=== PATIENT | female | born 1955 | race Caucasian/White ===

== ENCOUNTER 2016-08-23 09:22 | Day surgery (SDC) | payer OTHER ==
[~2016-08-23] VITALS: Ht 170.2 cm; Wt 79.5 kg
[~2016-08-23 09:22] MED LIST: ANAPROX DS550 M1 PO; AZITHROMYCIN250 MG1 PO; CALCIUM 500 MG1 EACH PO; CITRACAL + D C1 EACH PO; DAILY VITAMIN1 EAC8 PO; DOCUSIL100 MG PO; EPIPEN ADU0.3 MG/0.3 IM; HYDROCHLOROTH12.5 M3 PO; INDERAL40 MG PO; KLOR-CON M1010 MEQ PO; LISINOPRIL20 MG PO; LYRICA50 MG PO; METHIMAZOLE5 MG PO; METOPROLOL SUCC25 MG PO; METOPROLOL TART50 MG PO; MICROZIDE12.5 M1 PO; OMEPRAZOLE20 M2 PO; OMEPRAZOLE40 M1 PO; ONE DAILY WOME1 EACH PO; PANTOPRAZOLE SO40 MG PO; PEPCID20 MG PO; POTASSIUM CHLO10 ME3 PO; PREDNISONE50 MG PO; PRILOSEC OTC20 MG PO; PRINIVIL20 MG PO; PROTONIX40 MG PO; PROVENTIL,2.5 MG/3 M IH; RELAFEN750 MG PO; SYSTANE 0.3-0.1 EACH BOTH EYES; SYSTANE ULTRA 015 ML BOTH EYES; TOPROL XL25 MG PO; TRAMADOL HCL50 MG PO; TYLENOL EXTRA500 MG PO; VISINE A.C300 DROP/1 BOTH EYES; VITAMIN D1000 INTUN PO; VITAMIN D1000 UNIT PO; VOLTAREN-XR100 MG PO; ZESTRIL20 MG PO; omeprazole
[2016-08-23 09:56] LABS: POINT-OF-CARE METER ID UU14174212
== END 2016-08-23 11:40 | disposition home or self-care (01) ==
LOC: PAIN 09:22 → SDC 10:00 → PAIN 10:00
PROVIDERS: Anesthesiology Pain Medicine
DX: M47.896 Other spondylosis, lumbar region (principal); F41.1 Generalized anxiety disorder; M46.1 Sacroiliitis, not elsewhere classified; M51.36 Other intervertebral disc degeneration, lumbar region; I10 Essential (primary) hypertension; E05.90 Thyrotoxicosis, unspecified without thyrotoxic crisis or storm; M19.90 Unspecified osteoarthritis, unspecified site; R53.83 Other fatigue
CPT/HCPCS: 82948; J1030; J2250; J3010; S0020

== ENCOUNTER 2016-08-30 09:22 | Day surgery (SDC) | payer OTHER ==
[~2016-08-30] VITALS: Ht 170.2 cm; Wt 79.5 kg
[2016-08-30 09:49] LABS: POINT-OF-CARE METER ID UU14174212
== END 2016-08-30 10:48 | disposition home or self-care (01) ==
LOC: PAIN 09:22 → SDC 10:00 → PAIN 10:48
PROVIDERS: Anesthesiology Pain Medicine
PROC: 015R3ZZ Destruction of Sacral Nerve, Percutaneous Approach (ICD-10-PCS; principal; 2016-08-30)
PROC: 015B3ZZ Destruction of Lumbar Nerve, Percutaneous Approach (ICD-10-PCS; principal; 2016-08-30)
DX: M47.896 Other spondylosis, lumbar region (principal); M46.1 Sacroiliitis, not elsewhere classified; M51.36 Other intervertebral disc degeneration, lumbar region; M48.06 Spinal stenosis, lumbar region; F41.1 Generalized anxiety disorder; I10 Essential (primary) hypertension; E78.5 Hyperlipidemia, unspecified; Z79.891 Long term (current) use of opiate analgesic; E05.00 Thyrotoxicosis with diffuse goiter without thyrotoxic crisis or storm
CPT/HCPCS: 82948; J1030; J2250; J3010; S0020

== ENCOUNTER 2017-01-22 11:22 | Inpatient (IN) | payer OTHER ==
[~2017-01-22] VITALS: Ht 160 cm; Wt 86.0 kg
[2017-01-22 12:23] LABS: HEMATOCRIT 37.4 % (36.0-46.0); MCH 33.8 PG (29.0-34.0); MCHC 34.5 G/DL (30.0-36.0); MCV 97.9 FL (83-99); MEAN PLAT.VOLUME 10.4 uM^3 (9.5-12.4); PLATELET COUNT 277 K/uL (156-360); RBC DIS.WIDTH-SD 49.9 % (39-53); RED BLOOD COUNT 3.82 M/uL (3.80-5.20); WHITE BLOOD COUNT 7.5 K/uL (4.1-10.2)
[2017-01-22] MEDS ORDERED: POTASSIUM CHLO10 ME3 PO ×2 (12:28)
[2017-01-22] MEDS ORDERED: SYSTANE 0.3-0.1 EACH BOTH EYES (12:32)
[2017-01-22] MEDS ORDERED: NEOSPORIN1 APPLICAT BOTH EYES (12:33)
[2017-01-22 12:40] LABS: CHLORIDE 90 mEq/L (99-109); POTASSIUM 2.8 mEq/L (3.7-5.4); SODIUM 137 mEq/L (136-147)
[2017-01-22 12:42] LABS: GLUCOSE 155 mg/dL (70-99)
[2017-01-22 12:43] LABS: ANION GAP 19 MEQ/L (2-14)
[2017-01-22 12:44] LABS: TROP-I INTERPRETATION NEGATIVE; TROPONIN-I < 0.01 ng/mL (0.0-0.30)
[2017-01-22 12:46] LABS: GFR ESTIMATE (CALCULATED) > 59 mL/min/; UREA NITROGEN (BUN) 9 mg/dL (9-23)
[2017-01-22 15:30] VITALS: BP 136/66
[2017-01-22 16:20] VITALS: BP 136/69
[2017-01-22 16:45] LABS: COLOR YELLOW ((YELLOW))
[2017-01-22 16:46] LABS: BILIRUBIN NEGATIVE; GLUCOSE (STRIP) NEGATIVE; KETONES NEGATIVE; LEUKOCYTES MODERATE; NITRITE POSITIVE; PH, URINE 7.5 (5-8); PROTEIN (STRIP) TRACE; SPECIFIC GRAVITY 1.005 (1.000-1.030); UROBILINOGEN 0.2 MG/DL (0.2-1.0)
[2017-01-22 16:47] LABS: ADD MIUA? YES; BLOOD MODERATE
[2017-01-22 17:00] LABS: HDL CHOLESTEROL 29 MG/DL (Desirable>=50); LDL CHOLESTEROL 64 mg/dL (Desirable<100); NON-HDL CHOLESTEROL 103 mg/dL (Desirable<160); SAMPLE HEMOLYSIS CHECK 0; SAMPLE ICTERIC CHECK 0; SAMPLE LIPEMIA CHECK 0; TOTAL CHOLESTEROL 132 mg/dL (Desirable<200); TRIGLYCERIDES 197 MG/DL (Normal: <150)
[2017-01-22 17:28] LABS: RED BLOOD CELLS 0-5 /HPF (0-5)
[2017-01-22 17:30] LABS: EPITHELIAL CELLS 4+ /HPF; HYALINE CASTS RARE /LPF
[2017-01-22 17:31] LABS: BACTERIA 3+ /HPF; MUCUS TRACE /LPF
[2017-01-22 18:49] LABS: ANION GAP 13 MEQ/L (2-14); CHLORIDE 94 MEQ/L (99-109); GFR ESTIMATE (CALCULATED) > 59 mL/min/; GLUCOSE 144 mg/dL (70-99); POTASSIUM 3.1 MEQ/L (3.7-5.4); SAMPLE HEMOLYSIS CHECK 0; SAMPLE ICTERIC CHECK 0; SAMPLE LIPEMIA CHECK 0; SODIUM 134 MEQ/L (136-147); UREA NITROGEN (BUN) 8 mg/dL (9-23)
[2017-01-22 19:12] LABS: TROP-I INTERPRETATION NEGATIVE; TROPONIN-I 0.03 ng/mL (0.0-0.30)
[2017-01-22 19:48] VITALS: BP 103/68
[2017-01-22 23:00] VITALS: BP 112/53
[2017-01-23 03:09] VITALS: BP 119/68
[2017-01-23 05:26] LABS: HEMATOCRIT 32.9 % (36.0-46.0); MCHC 34.7 G/DL (30.0-36.0); MCV 98.2 FL (83-99); MEAN PLAT.VOLUME 10.5 uM^3 (9.5-12.4); PLATELET COUNT 243 K/uL (156-360); RBC DIS.WIDTH-CV 14.3 % (11.8-14.6); RBC DIS.WIDTH-SD 51.3 % (39-53); RED BLOOD COUNT 3.35 M/uL (3.80-5.20); WHITE BLOOD COUNT 8.8 K/uL (4.1-10.2)
[2017-01-23 05:57] LABS: ANION GAP 12 MEQ/L (2-14); CHLORIDE 96 MEQ/L (99-109); GFR ESTIMATE (CALCULATED) > 59 mL/min/; GLUCOSE 148 mg/dL (70-99); POTASSIUM 3.4 MEQ/L (3.7-5.4); SAMPLE HEMOLYSIS CHECK 0; SAMPLE ICTERIC CHECK 0; SAMPLE LIPEMIA CHECK 0; SODIUM 135 MEQ/L (136-147); UREA NITROGEN (BUN) 8 mg/dL (9-23)
[2017-01-23 08:33] VITALS: BP 111/59
[2017-01-23 11:43] VITALS: BP 115/61
[2017-01-23 13:34] LABS: MAGNESIUM 0.6 mg/dl (1.3-2.7)
[2017-01-23] MEDS ORDERED: PROTONIX40 MG PO (16:35)
[2017-01-23 16:55] VITALS: BP 115/62
[2017-01-23 19:44] VITALS: BP 135/66
[2017-01-23 23:33] VITALS: BP 122/70
[2017-01-24 04:52] VITALS: BP 134/90
[2017-01-24 05:46] LABS: BASOPHIL COUNT 0.1 K/uL (0-0.1); EOSINOPHIL COUNT 0.1 K/uL (0-0.3); HEMATOCRIT 32.9 % (36.0-46.0); IMMATURE GRANULOCYTE (%) 1.2 % (0.0-0.7); IMMATURE GRANULOCYTE COUNT 0.1 K/uL; INSTRUMENT ABS NEUTROPHIL CT 4.3 K/uL; LYMPHOCYTE COUNT 1.3 K/uL (1.0-2.8); MCHC 34.7 G/DL (30.0-36.0); MCV 100.9 FL (83-99); MEAN PLAT.VOLUME 10.4 uM^3 (9.5-12.4); MONOCYTE (%) 13.5 % (3-12); MONOCYTE COUNT 0.9 K/uL (0-0.8); NEUTROPHIL (%) 64.5 % (45-76); NEUTROPHIL COUNT 4.3 K/uL (1.8-6.4); PLATELET COUNT 238 K/uL (156-360); RBC DIS.WIDTH-CV 14.8 % (11.8-14.6); RBC DIS.WIDTH-SD 53.9 % (39-53); RED BLOOD COUNT 3.26 M/uL (3.80-5.20); WHITE BLOOD COUNT 6.7 K/uL (4.1-10.2)
[2017-01-24 06:00] LABS: C DIFF TOXIN NEGATIVE (NEGATIVE)
[2017-01-24 06:08] LABS: PROBE CHECK PASS; SPECIMEN PROCESSING CONTROL PASS
[2017-01-24 06:13] LABS: ALKALINE PHOSPHATASE 110 IU/L (3-129); ANION GAP 12 MEQ/L (2-14); CHLORIDE 101 MEQ/L (99-109); GFR ESTIMATE (CALCULATED) > 59 mL/min/; GLUCOSE 135 mg/dL (70-99); POTASSIUM 3.8 MEQ/L (3.7-5.4); SAMPLE HEMOLYSIS CHECK 0; SAMPLE ICTERIC CHECK 0; SAMPLE LIPEMIA CHECK 0; SODIUM 139 MEQ/L (136-147); TOTAL BILIRUBIN 0.6 MG/DL (0.0-1.0); UREA NITROGEN (BUN) 8 mg/dL (9-23)
[2017-01-24 09:09] VITALS: BP 128/76
[2017-01-24 12:09] VITALS: BP 112/774
[2017-01-24 14:19] LABS: ADD MIUA? YES; BILIRUBIN NEGATIVE; BLOOD SMALL; COLOR AMBER ((YELLOW)); GLUCOSE (STRIP) NEGATIVE; KETONES NEGATIVE; LEUKOCYTES TRACE; NITRITE NEGATIVE; PROTEIN (STRIP) NEGATIVE; SPECIFIC GRAVITY 1.009 (1.000-1.030); UROBILINOGEN 0.2 MG/DL (0.2-1.0)
[2017-01-24 14:23] LABS: BACTERIA RARE /HPF; EPITHELIAL CELLS 3+ /HPF; HYALINE CASTS 0-5 /LPF; MUCUS TRACE /LPF; RED BLOOD CELLS 15-20 /HPF (0-5); UCUL ADDED? NO
[2017-01-24 16:47] VITALS: BP 140/74
[2017-01-24 19:21] VITALS: BP 135/77
[2017-01-25 00:57] VITALS: BP 141/87
[2017-01-25 04:15] VITALS: BP 161/82
[2017-01-25 06:03] LABS: BASOPHIL COUNT 0.1 K/uL (0-0.1); EOSINOPHIL (%) 1.2 % (0-5); EOSINOPHIL COUNT 0.1 K/uL (0-0.3); HEMATOCRIT 33.7 % (36.0-46.0); IMMATURE GRANULOCYTE (%) 0.9 % (0.0-0.7); IMMATURE GRANULOCYTE COUNT 0.1 K/uL; INSTRUMENT ABS NEUTROPHIL CT 6.1 K/uL; LYMPHOCYTE COUNT 1.1 K/uL (1.0-2.8); MCHC 34.1 G/DL (30.0-36.0); MCV 102.4 FL (83-99); MONOCYTE (%) 14.4 % (3-12); MONOCYTE COUNT 1.2 K/uL (0-0.8); NEUTROPHIL (%) 70.3 % (45-76); NEUTROPHIL COUNT 6.1 K/uL (1.8-6.4); PLATELET COUNT 248 K/uL (156-360); RED BLOOD COUNT 3.29 M/uL (3.80-5.20); WHITE BLOOD COUNT 8.6 K/uL (4.1-10.2)
[2017-01-25 06:27] LABS: ALKALINE PHOSPHATASE 121 IU/L (3-129); ANION GAP 10 MEQ/L (2-14); CHLORIDE 104 MEQ/L (99-109); GFR ESTIMATE (CALCULATED) > 59 mL/min/; GLUCOSE 123 mg/dL (70-99); POTASSIUM 3.8 MEQ/L (3.7-5.4); SAMPLE HEMOLYSIS CHECK 0; SAMPLE ICTERIC CHECK 0; SAMPLE LIPEMIA CHECK 0; SODIUM 141 MEQ/L (136-147); TOTAL BILIRUBIN 0.6 MG/DL (0.0-1.0); UREA NITROGEN (BUN) 6 mg/dL (9-23)
[2017-01-25 08:21] VITALS: BP 137/84
[2017-01-25] MEDS ORDERED: CEFTIN500 MG PO (11:59)
[2017-01-25] MEDS ORDERED: XARELTO20 MG PO (11:59)
== END 2017-01-25 13:03 | disposition home or self-care (01) | DRG 309 ==
LOC: EME 11:22 → 4EAST 14:04 → EDOF 14:04 → 4EAST 15:47
PROVIDERS: Emergency Medicine; Hospitalist; Internal Medicine
DX: I48.0 Paroxysmal atrial fibrillation (principal); N39.0 Urinary tract infection, site not specified; K52.9 Noninfective gastroenteritis and colitis, unspecified; E87.6 Hypokalemia; J44.9 Chronic obstructive pulmonary disease, unspecified; E03.9 Hypothyroidism, unspecified; G89.4 Chronic pain syndrome; I11.0 Hypertensive heart disease with heart failure; I50.9 Heart failure, unspecified; K21.9 Gastro-esophageal reflux disease without esophagitis; E11.9 Type 2 diabetes mellitus without complications; K76.0 Fatty (change of) liver, not elsewhere classified; K44.9 Diaphragmatic hernia without obstruction or gangrene; E87.2 Acidosis; Z87.891 Personal history of nicotine dependence; Z87.11 Personal history of peptic ulcer disease; Z86.010 Personal history of colon polyps; Z79.899 Other long term (current) drug therapy
CPT/HCPCS: 71010; 74176; 80048; 80048 91; 80053; 80061; 81003; 83605; 83735; 83880; 84443; 84484; 85025; 85027; 87493; 93005; 93306; 99281; 99284; J0696; J1650; J3475; J3480; J7030; J7050

== ENCOUNTER 2017-07-30 10:41 | Emergency (ER) | payer OTHER ==
[~2017-07-30] VITALS: Ht 170.2 cm; Wt 73.7 kg
[~2017-07-30 10:41] MED LIST changes: +CEFTIN500 MG PO; +NEOSPORIN1 APPLICAT BOTH EYES; +XARELTO20 MG PO
[2017-07-30 11:12] VITALS: BP 104/70
[2017-07-30 11:43] LABS: HEMATOCRIT 35.9 % (36.0-46.0); HEMOGLOBIN 12.3 G/DL (11.9-15.5); MCHC 34.3 G/DL (30.0-36.0); MCV 99.2 FL (83-99); PLATELET COUNT 264 K/uL (156-360); RBC DIS.WIDTH-CV 15.7 % (11.8-14.6); RBC DIS.WIDTH-SD 55.9 % (39-53); RED BLOOD COUNT 3.62 M/uL (3.80-5.20); WHITE BLOOD COUNT 8.4 K/uL (4.1-10.2)
[2017-07-30 11:54] LABS: CHLORIDE 97 mEq/L (99-109); POTASSIUM 3.9 mEq/L (3.7-5.4); SODIUM 137 mEq/L (136-147)
[2017-07-30 11:55] LABS: GLUCOSE 132 mg/dL (70-99)
[2017-07-30 11:59] LABS: CREATININE 0.9 mg/dL (0.6-1.3); GFR ESTIMATE (CALCULATED) > 59 mL/min/
[2017-07-30 12:00] LABS: UREA NITROGEN (BUN) 16 mg/dL (9-23)
[2017-07-30 12:07] LABS: TROP-I INTERPRETATION NEGATIVE; TROPONIN-I < 0.01 ng/mL (0.0-0.30)
== END 2017-07-30 13:58 | disposition left against medical advice (07) ==
LOC: EME 10:41
DX: R06.02 Shortness of breath (principal); Z53.21 Procedure and treatment not carried out due to patient leaving prior to being seen by health care provider
CPT/HCPCS: 71046; 80048; 84484; 85027; 93005

== ENCOUNTER 2017-10-16 09:13 | Day surgery (SDC) | payer OTHER ==
[~2017-10-16] VITALS: Ht 170.2 cm; Wt 71.0 kg
[~2017-10-16 09:13] MED LIST changes: +CALCIUM500 M4 PO; +FLECAINIDE ACET50 MG PO; +LASIX20 MG PO; +METFORMIN HCL500 MG PO; +RESTASIS MULTI5.5 ML BOTH EYES; +SPIRONOLACTONE25 MG PO
== END 2017-10-16 11:55 | disposition home or self-care (01) ==
LOC: CATH 09:13
PROVIDERS: Internal Medicine Cardiovascular Disease
PROC: 5A2204Z Restoration of Cardiac Rhythm, Single (ICD-10-PCS; principal; 2017-10-16)
DX: I48.1 Persistent atrial fibrillation (principal); I10 Essential (primary) hypertension; E11.9 Type 2 diabetes mellitus without complications; I34.0 Nonrheumatic mitral (valve) insufficiency; J44.9 Chronic obstructive pulmonary disease, unspecified; E03.9 Hypothyroidism, unspecified; K21.9 Gastro-esophageal reflux disease without esophagitis; Z79.01 Long term (current) use of anticoagulants; Z79.84 Long term (current) use of oral hypoglycemic drugs
CPT/HCPCS: 82948; 93005

== ENCOUNTER 2017-10-20 09:03 | Inpatient (IN) | payer OTHER ==
[~2017-10-20] VITALS: Ht 170.2 cm; Wt 73.4 kg
[2017-10-20 09:47] LABS: HEMATOCRIT 28.9 % (36.0-46.0); HEMOGLOBIN 9.4 G/DL (11.9-15.5); MCH 31.4 PG (29.0-34.0); MCHC 32.5 G/DL (30.0-36.0); MCV 96.7 FL (83-99); NRBC (%) 0.1 /100 WBC (0-0); PLATELET COUNT 433 K/uL (156-360); RBC DIS.WIDTH-CV 17.5 % (11.8-14.6); RBC DIS.WIDTH-SD 62.5 % (39-53); RED BLOOD COUNT 2.99 M/uL (3.80-5.20); WHITE BLOOD COUNT 13.3 K/uL (4.1-10.2)
[2017-10-20 10:00] LABS: CHLORIDE 96 mEq/L (99-109); POTASSIUM 5.2 mEq/L (3.7-5.4); SODIUM 133 mEq/L (136-147)
[2017-10-20 10:01] LABS: GLUCOSE 147 mg/dL (70-99)
[2017-10-20 10:05] LABS: CREATININE 1.4 mg/dL (0.6-1.3); GFR ESTIMATE (CALCULATED) 41 mL/min/
[2017-10-20 10:06] LABS: UREA NITROGEN (BUN) 28 mg/dL (9-23)
[2017-10-20 10:07] LABS: TROP-I INTERPRETATION NEGATIVE; TROPONIN-I < 0.01 ng/mL (0.0-0.30)
[2017-10-20 17:05] VITALS: BP 142/60
[2017-10-20 20:09] VITALS: BP 104/69
[2017-10-20 23:51] VITALS: BP 120/58
[2017-10-21 04:08] VITALS: BP 132/65
[2017-10-21 06:54] LABS: HEMATOCRIT 25.6 % (36.0-46.0); HEMOGLOBIN 8.1 G/DL (11.9-15.5); MCH 30.1 PG (29.0-34.0); MCHC 31.6 G/DL (30.0-36.0); MCV 95.2 FL (83-99); PLATELET COUNT 370 K/uL (156-360); RBC DIS.WIDTH-CV 17.7 % (11.8-14.6); RBC DIS.WIDTH-SD 61.8 % (39-53); RED BLOOD COUNT 2.69 M/uL (3.80-5.20); WHITE BLOOD COUNT 9.4 K/uL (4.1-10.2)
[2017-10-21 07:18] LABS: CHLORIDE 96 MEQ/L (99-109); CREATININE 1.1 MG/DL (0.6-1.3); GFR ESTIMATE (CALCULATED) 54 mL/min/; POTASSIUM 4.3 MEQ/L (3.7-5.4); SODIUM 135 MEQ/L (136-147); UREA NITROGEN (BUN) 25 mg/dL (9-23)
[2017-10-21 07:23] LABS: GLUCOSE 102 mg/dL (70-99)
[2017-10-21 08:55] VITALS: BP 113/55
[2017-10-21 11:16] VITALS: BP 108/59
[2017-10-21 13:32] LABS: APPEARANCE SL.HAZY ((CLEAR)); BILIRUBIN NEGATIVE; BLOOD LARGE; COLOR YELLOW ((YELLOW)); GLUCOSE (STRIP) NEGATIVE; KETONES NEGATIVE; LEUKOCYTES MODERATE; NITRITE NEGATIVE; PROTEIN (STRIP) NEGATIVE; SPECIFIC GRAVITY 1.006 (1.000-1.030); UROBILINOGEN 0.2 MG/DL (0.2-1.0)
[2017-10-21 13:47] LABS: BACTERIA RARE /HPF; EPITHELIAL CELLS RARE /HPF; HYALINE CASTS 0-5 /LPF; MUCUS NONE SEEN /LPF; RED BLOOD CELLS 30-40 /HPF (0-5); WHITE BLOOD CELLS 30-40 /HPF (0-5)
[2017-10-21 15:20] VITALS: BP 105/52
[2017-10-21 16:39] LABS: IRON 23 MCG/DL (35-150); TRANSFERRIN (TIBC) 316.2 mg/dL (215-380); TRANSFERRIN SATUR. 7 % (20-55)
[2017-10-21 16:46] LABS: HEMATOCRIT 27.1 % (36.0-46.0); HEMOGLOBIN 8.9 G/DL (11.9-15.5); MCH 31.4 PG (29.0-34.0); MCHC 32.8 G/DL (30.0-36.0); MCV 95.8 FL (83-99); NRBC (%) 0.3 /100 WBC (0-0); PLATELET COUNT 382 K/uL (156-360); RBC DIS.WIDTH-CV 18.1 % (11.8-14.6); RBC DIS.WIDTH-SD 62.6 % (39-53); RED BLOOD COUNT 2.83 M/uL (3.80-5.20); WHITE BLOOD COUNT 9.9 K/uL (4.1-10.2)
[2017-10-21 18:18] LABS: FOLIC ACID (FOLATE) > 22.0 NG/ML (5.0-22.0)
[2017-10-21 20:17] VITALS: BP 132/63
[2017-10-21 23:36] VITALS: BP 140/60
[2017-10-22 00:37] LABS: HEMATOCRIT 26.2 % (36.0-46.0); HEMOGLOBIN 8.7 G/DL (11.9-15.5); MCH 31.5 PG (29.0-34.0); MCHC 33.2 G/DL (30.0-36.0); MCV 94.9 FL (83-99); PLATELET COUNT 362 K/uL (156-360); RBC DIS.WIDTH-SD 61.9 % (39-53); RED BLOOD COUNT 2.76 M/uL (3.80-5.20)
[2017-10-22 05:27] VITALS: BP 128/50
[2017-10-22 06:11] LABS: BASOPHIL (%) 0.8 % (0-1); BASOPHIL COUNT 0.1 K/uL (0-0.1); EOSINOPHIL (%) 2.5 % (0-5); EOSINOPHIL COUNT 0.2 K/uL (0-0.3); HEMATOCRIT 27.4 % (36.0-46.0); HEMOGLOBIN 8.6 G/DL (11.9-15.5); IMMATURE GRANULOCYTE (%) 0.6 % (0.0-0.7); LYMPHOCYTE (%) 16.5 % (15-42); LYMPHOCYTE COUNT 1.5 K/uL (1.0-2.8); MCH 30.2 PG (29.0-34.0); MCHC 31.4 G/DL (30.0-36.0); MCV 96.1 FL (83-99); MONOCYTE (%) 10.6 % (3-12); MONOCYTE COUNT 0.9 K/uL (0-0.8); NEUTROPHIL COUNT 6.1 K/uL (1.8-6.4); PLATELET COUNT 376 K/uL (156-360); RBC DIS.WIDTH-CV 17.8 % (11.8-14.6); RBC DIS.WIDTH-SD 61.2 % (39-53); RED BLOOD COUNT 2.85 M/uL (3.80-5.20); WHITE BLOOD COUNT 8.8 K/uL (4.1-10.2)
[2017-10-22 06:28] LABS: CHLORIDE 96 MEQ/L (99-109); CREATININE 0.9 MG/DL (0.6-1.3); GFR ESTIMATE (CALCULATED) > 59 mL/min/; GLUCOSE 101 mg/dL (70-99); SODIUM 134 MEQ/L (136-147); UREA NITROGEN (BUN) 19 mg/dL (9-23)
[2017-10-22 08:26] VITALS: BP 134/60
[2017-10-22 10:56] VITALS: BP 125/67
[2017-10-22 13:13] LABS: HEMOGLOBIN 8.8 G/DL (11.9-15.5); MCH 30.4 PG (29.0-34.0); MCHC 31.4 G/DL (30.0-36.0); MCV 96.9 FL (83-99); PLATELET COUNT 394 K/uL (156-360); RBC DIS.WIDTH-SD 63.6 % (39-53); RED BLOOD COUNT 2.89 M/uL (3.80-5.20); WHITE BLOOD COUNT 8.6 K/uL (4.1-10.2)
[2017-10-22 17:00] VITALS: BP 127/63
[2017-10-22 18:07] LABS: HEMATOCRIT 28.3 % (36.0-46.0); HEMOGLOBIN 9.3 G/DL (11.9-15.5); MCV 95.9 FL (83-99)
[2017-10-22 19:52] VITALS: BP 136/64
[2017-10-22 19:58] LABS: STOOL OCCULT BLD 1ST SPECIMEN NEGATIVE
[2017-10-22 23:37] VITALS: BP 118/75
[2017-10-23 01:14] LABS: HEMATOCRIT 29.9 % (36.0-46.0); HEMOGLOBIN 9.9 G/DL (11.9-15.5); MCV 95.2 FL (83-99)
[2017-10-23 04:37] VITALS: BP 103/51
[2017-10-23 07:51] VITALS: BP 101/67
[2017-10-23 09:29] LABS: HEMATOCRIT 33.4 % (36.0-46.0); HEMOGLOBIN 10.8 G/DL (11.9-15.5); MCV 97.7 FL (83-99)
[2017-10-23 10:15] LABS: ALBUMIN 3.2 G/DL (3.2-4.8); ALKALINE PHOSPHATASE 85 IU/L (3-129); ALT (GPT) 12 IU/L (3-49); AST (GOT) 17 IU/L (2-34); CHLORIDE 97 MEQ/L (99-109); CREATININE 0.8 MG/DL (0.6-1.3); GFR ESTIMATE (CALCULATED) > 59 mL/min/; GLUCOSE 141 mg/dL (70-99); POTASSIUM 4.7 MEQ/L (3.7-5.4); SODIUM 135 MEQ/L (136-147); TOTAL BILIRUBIN 0.3 MG/DL (0.0-1.0); TOTAL PROTEIN 5.7 G/DL (6.4-8.3); UREA NITROGEN (BUN) 11 mg/dL (9-23)
[2017-10-23 11:10] VITALS: BP 109/59
[2017-10-23 17:01] VITALS: BP 112/60
[2017-10-23 18:27] LABS: HEMATOCRIT 32.3 % (36.0-46.0); HEMOGLOBIN 10.3 G/DL (11.9-15.5); MCV 97.3 FL (83-99)
[2017-10-23 20:16] VITALS: BP 119/73
[2017-10-23 23:30] VITALS: BP 103/56
[2017-10-24 04:26] VITALS: BP 100/55
[2017-10-24 07:25] VITALS: BP 123/55
[2017-10-24 10:59] VITALS: BP 104/55
== END 2017-10-24 15:38 | disposition home or self-care (01) | DRG 308 ==
LOC: EME 09:03 → 3EAST 11:18 → EDOF 11:18 → ENRESERV 11:21 → EDOF 12:10 → ENRESERV 13:44 → 3EAST 15:48
PROVIDERS: Internal Medicine; Internal Medicine Gastroenterology; Physician Assistant
PROC: 0DB78ZX Excision of Stomach, Pylorus, Via Natural or Artificial Opening Endoscopic, Diagnostic (ICD-10-PCS; principal; 2017-10-23)
DX: I48.0 Paroxysmal atrial fibrillation (principal); N39.0 Urinary tract infection, site not specified; K25.4 Chronic or unspecified gastric ulcer with hemorrhage; I49.1 Atrial premature depolarization; E87.1 Hypo-osmolality and hyponatremia; E11.649 Type 2 diabetes mellitus with hypoglycemia without coma; D62 Acute posthemorrhagic anemia; K29.70 Gastritis, unspecified, without bleeding; I10 Essential (primary) hypertension; K44.9 Diaphragmatic hernia without obstruction or gangrene; K21.9 Gastro-esophageal reflux disease without esophagitis; E03.9 Hypothyroidism, unspecified; J44.9 Chronic obstructive pulmonary disease, unspecified; E78.5 Hyperlipidemia, unspecified; B96.20 Unspecified Escherichia coli [E. coli] as the cause of diseases classified elsewhere; Z87.891 Personal history of nicotine dependence; Z87.11 Personal history of peptic ulcer disease; Z82.5 Family history of asthma and other chronic lower respiratory diseases; Z79.899 Other long term (current) drug therapy; Z80.52 Family history of malignant neoplasm of bladder; Z79.84 Long term (current) use of oral hypoglycemic drugs; Z79.01 Long term (current) use of anticoagulants
CPT/HCPCS: 71045; 80048; 80053; 81003; 82272; 82607; 82746; 82948; 83540; 84466; 84484; 85014; 85018; 85025; 85027; 86850; 86900; 86901; 87077; 87086; 87186; 88305; 88342 TC; 93005; 94799; 99281; 99285; C9113; J0696; J2250

== ENCOUNTER 2018-03-01 19:56 | Inpatient (IN) | payer OTHER ==
[~2018-03-01] VITALS: Ht 170.2 cm; Wt 97.0 kg
[2018-03-01 20:59] LABS: HEMATOCRIT 20.3 % (36.0-46.0); MCH 28.8 PG (29.0-34.0); MCV 89.8 FL (83-99); PLATELET COUNT 344 K/uL (156-360); RBC DIS.WIDTH-CV 19.9 % (11.8-14.6); RED BLOOD COUNT 2.26 M/uL (3.80-5.20); WHITE BLOOD COUNT 11.5 K/uL (4.1-10.2)
[2018-03-01 21:00] LABS: HEMOGLOBIN 6.5 G/DL (11.9-15.5)
[2018-03-01 21:02] LABS: ALBUMIN 3.4 g/dL (3.2-4.8); INTER. NORMALIZED RATIO 1.4
[2018-03-01 21:03] LABS: CHLORIDE 86 mEq/L (99-109); POTASSIUM 3.5 mEq/L (3.7-5.4); SODIUM 133 mEq/L (136-147)
[2018-03-01 21:04] LABS: PTT 32.9 SEC (25-37)
[2018-03-01 21:05] LABS: GLUCOSE 104 mg/dL (70-99); TOTAL PROTEIN 6.1 g/dL (6.4-8.3)
[2018-03-01 21:07] LABS: TOTAL BILIRUBIN 0.4 mg/dL (0.0-1.0)
[2018-03-01 21:08] LABS: ALKALINE PHOSPHATASE 270 IU/L (3-129)
[2018-03-01 21:09] LABS: CREATININE 1.4 mg/dL (0.6-1.3); GFR ESTIMATE (CALCULATED) 41 mL/min/
[2018-03-01 21:10] LABS: AST (GOT) 120 IU/L (2-34); UREA NITROGEN (BUN) 17 mg/dL (9-23)
[2018-03-01 21:11] LABS: ALT (GPT) 59 IU/L (3-49)
[2018-03-01 21:17] LABS: TROP-I INTERPRETATION NEGATIVE; TROPONIN-I < 0.01 ng/mL (0.0-0.30)
[2018-03-01 22:36] VITALS: BP 92/56
[2018-03-01 22:52] VITALS: BP 103/51
[2018-03-01 23:37] VITALS: BP 90/47
[2018-03-02] VITALS (24 sets, daily range): BP systolic 90–139; BP diastolic 51–82
[2018-03-02] MEDS ORDERED: CORDARONE200 MG PO (00:18)
[2018-03-02] MEDS ORDERED: ONE DAILY FOR1 EAC3 PO (00:20)
[2018-03-02] MEDS ORDERED: ELIQUIS5 MG PO (00:21)
[2018-03-02] MEDS ORDERED: GLUCOPHAGE XR,500 MG PO (00:21)
[2018-03-02] MEDS ORDERED: OYSCO-500500 MG PO (00:23)
[2018-03-02] MEDS ORDERED: METOPROLOL TART50 MG PO (00:32)
[2018-03-02] MEDS ORDERED: KLOR-CON M1010 MEQ PO (00:34)
[2018-03-02] MEDS ORDERED: LASIX20 MG PO (00:35)
[2018-03-02] MEDS ORDERED: VITAMIN B-122000 MC1 PO (00:38)
[2018-03-02 06:31] LABS: HEMATOCRIT 24.9 % (36.0-46.0); HEMOGLOBIN 8.3 G/DL (11.9-15.5); MCH 28.5 PG (29.0-34.0); MCHC 33.3 G/DL (30.0-36.0); PLATELET COUNT 280 K/uL (156-360); RBC DIS.WIDTH-CV 17.5 % (11.8-14.6); RBC DIS.WIDTH-SD 52.7 % (39-53); WHITE BLOOD COUNT 8.7 K/uL (4.1-10.2)
[2018-03-02 06:33] LABS: MCV 85.6 FL (83-99); RED BLOOD COUNT 2.91 M/uL (3.80-5.20)
[2018-03-02 07:09] LABS: CHLORIDE 89 MEQ/L (99-109); CREATININE 1.1 MG/DL (0.6-1.3); GFR ESTIMATE (CALCULATED) 54 mL/min/; GLUCOSE 116 mg/dL (70-99); POTASSIUM 3.7 MEQ/L (3.7-5.4); SODIUM 133 MEQ/L (136-147); UREA NITROGEN (BUN) 17 mg/dL (9-23)
[2018-03-02 19:02] LABS: HEMATOCRIT 31.4 % (36.0-46.0); HEMOGLOBIN 10.8 G/DL (11.9-15.5); MCV 86.3 FL (83-99)
[2018-03-03 04:30] VITALS: BP 93/63
[2018-03-03 06:31] LABS: HEMATOCRIT 30.5 % (36.0-46.0); HEMOGLOBIN 10.4 G/DL (11.9-15.5); MCH 29.7 PG (29.0-34.0); MCHC 34.1 G/DL (30.0-36.0); MCV 87.1 FL (83-99); PLATELET COUNT 226 K/uL (156-360); RBC DIS.WIDTH-SD 50.5 % (39-53); WHITE BLOOD COUNT 10.4 K/uL (4.1-10.2)
[2018-03-03 06:40] LABS: INTER. NORMALIZED RATIO 1.1
[2018-03-03 06:43] LABS: PTT 28.4 SEC (25-37)
[2018-03-03 07:30] VITALS: BP 124/87
[2018-03-03 11:06] VITALS: BP 119/69
[2018-03-03 16:00] VITALS: BP 119/66
[2018-03-03 19:05] VITALS: BP 117/58
[2018-03-03 23:06] VITALS: BP 122/73
[2018-03-04 04:49] VITALS: BP 133/74
[2018-03-04 05:31] LABS: HEMATOCRIT 32.7 % (36.0-46.0); HEMOGLOBIN 10.8 G/DL (11.9-15.5); MCH 29.4 PG (29.0-34.0); MCV 89.1 FL (83-99); NRBC (%) 0.1 /100 WBC (0-0); PLATELET COUNT 206 K/uL (156-360); RBC DIS.WIDTH-CV 17.6 % (11.8-14.6); RED BLOOD COUNT 3.67 M/uL (3.80-5.20); WHITE BLOOD COUNT 14.2 K/uL (4.1-10.2)
[2018-03-04 05:53] LABS: CHLORIDE 95 MEQ/L (99-109); CREATININE 0.8 MG/DL (0.6-1.3); GFR ESTIMATE (CALCULATED) > 59 mL/min/; GLUCOSE 140 mg/dL (70-99); POTASSIUM 3.2 MEQ/L (3.7-5.4); SODIUM 139 MEQ/L (136-147); UREA NITROGEN (BUN) 9 mg/dL (9-23)
[2018-03-04 07:51] VITALS: BP 140/73
[2018-03-04 11:44] VITALS: BP 149/82
[2018-03-04 15:19] VITALS: BP 112/63
[2018-03-04 19:20] VITALS: BP 116/62
[2018-03-04 21:10] LABS: APPEARANCE CLOUDY ((CLEAR)); BILIRUBIN NEGATIVE; BLOOD SMALL; GLUCOSE (STRIP) NEGATIVE; KETONES NEGATIVE; LEUKOCYTES MODERATE; NITRITE POSITIVE; PROTEIN (STRIP) NEGATIVE; SPECIFIC GRAVITY 1.014 (1.000-1.030)
[2018-03-04 21:12] LABS: COLOR YELLOW ((YELLOW))
[2018-03-04 21:28] LABS: BACTERIA 3+ /HPF; EPITHELIAL CELLS 1+ /HPF; MUCUS NONE SEEN /LPF; RED BLOOD CELLS 0-5 /HPF (0-5); WHITE BLOOD CELLS TNTC /HPF (0-5)
[2018-03-04 23:19] VITALS: BP 124/71
[2018-03-05 03:24] VITALS: BP 123/71
[2018-03-05 06:54] LABS: BASOPHIL (%) 0.4 % (0-1); BASOPHIL COUNT 0.1 K/uL (0-0.1); EOSINOPHIL (%) 1.9 % (0-5); EOSINOPHIL COUNT 0.2 K/uL (0-0.3); HEMATOCRIT 31.6 % (36.0-46.0); HEMOGLOBIN 10.4 G/DL (11.9-15.5); IMMATURE GRANULOCYTE (%) 0.6 % (0.0-0.7); LYMPHOCYTE (%) 8.8 % (15-42); LYMPHOCYTE COUNT 1.1 K/uL (1.0-2.8); MCH 29.8 PG (29.0-34.0); MCHC 32.9 G/DL (30.0-36.0); MCV 90.5 FL (83-99); MONOCYTE COUNT 1.7 K/uL (0-0.8); NEUTROPHIL (%) 74.3 % (45-76); NEUTROPHIL COUNT 9.2 K/uL (1.8-6.4); PLATELET COUNT 202 K/uL (156-360); RBC DIS.WIDTH-CV 18.5 % (11.8-14.6); RBC DIS.WIDTH-SD 55.8 % (39-53); RED BLOOD COUNT 3.49 M/uL (3.80-5.20); WHITE BLOOD COUNT 12.5 K/uL (4.1-10.2)
[2018-03-05 07:18] VITALS: BP 131/61
[2018-03-05 07:35] LABS: CHLORIDE 95 MEQ/L (99-109); GFR ESTIMATE (CALCULATED) > 59 mL/min/; GLUCOSE 105 mg/dL (70-99); POTASSIUM 3.4 MEQ/L (3.7-5.4); SODIUM 139 MEQ/L (136-147); UREA NITROGEN (BUN) 12 mg/dL (9-23)
[2018-03-05 11:41] VITALS: BP 124/60
[2018-03-05] MEDS ORDERED: PROAIR RESPICL90 MCG IH (14:18)
== END 2018-03-05 16:00 | disposition home or self-care (01) | DRG 345 ==
LOC: EME 19:56 → EDOF 22:49 → 3EAST 22:49 → ENRESERV 22:51 → CANRESERV 22:51 → ENRESERV 22:54 → CANRESERV 22:54 → ENRESERV 23:09 → 3EAST 03-02 00:14
PROVIDERS: Emergency Medicine; Hospitalist; Internal Medicine; Internal Medicine Gastroenterology; Physician Assistant
DX: K55.21 Angiodysplasia of colon with hemorrhage (principal); N17.9 Acute kidney failure, unspecified; J81.1 Chronic pulmonary edema; R09.02 Hypoxemia; E86.0 Dehydration; D62 Acute posthemorrhagic anemia; I48.91 Unspecified atrial fibrillation; E87.70 Fluid overload, unspecified; K29.90 Gastroduodenitis, unspecified, without bleeding; K44.9 Diaphragmatic hernia without obstruction or gangrene; K57.31 Diverticulosis of large intestine without perforation or abscess with bleeding; K21.9 Gastro-esophageal reflux disease without esophagitis; D12.3 Benign neoplasm of transverse colon; E11.9 Type 2 diabetes mellitus without complications; I10 Essential (primary) hypertension; J44.9 Chronic obstructive pulmonary disease, unspecified; E03.9 Hypothyroidism, unspecified; F10.10 Alcohol abuse, uncomplicated; Z87.11 Personal history of peptic ulcer disease; Z87.891 Personal history of nicotine dependence; Z79.01 Long term (current) use of anticoagulants; Z79.84 Long term (current) use of oral hypoglycemic drugs
CPT/HCPCS: 71045; 71046; 80048; 80053; 81003; 82948; 83880; 84484; 85014; 85018; 85025; 85027; 85610; 85730; 86850; 86900; 86901; 86920; 88305; 88342 TC; 93005; 94640; 94799; 99281; 99285; C9113; J1756; J1940; J2405; J7030; J7050; P9016; P9040